=== PATIENT | female | born 1980 ===

== ENCOUNTER 2020-12-03 15:38 | Emergency (ER) | payer SELFPAY ==
[~2020-12-03] VITALS: Ht 162.5 cm; Wt 58.4 kg
[2020-12-03 15:40] VITALS: BP 137/99
[2020-12-03] MEDS ORDERED: ESTR1PAT89 (15:48)
--- NOTE | 2020-12-03 15:50 | ED Integumentary General ---
General Stated Complaint: RT HAND LAC History of Present Illness Date Seen by Provider: Dec 03, 2020 Time Seen by Provider: 15:45 Initial Comments 40-year-old female presents with laceration to dorsal surface of her right hand. She was out mowing when mower got stuck on a rock. She attempted to move the rock her hand slipped and struck her hand on the mower. She has an approximate 2.5 cm laceration. She reports no other injury. She has full range of motion. She is unsure of her last tetanus Allergies and Home Medications Allergies Coded Allergies: No Known Drug Allergies (Unverified , 12/03/20) Patient Home Medication List Home Medication List Reviewed: Yes Review of Systems Review of Systems Constitutional: no symptoms reported EENTM: no symptoms reported Respiratory: no symptoms reported Cardiovascular: no symptoms reported Gastrointestinal: no symptoms reported Musculoskeletal: see HPI Skin: see HPI Psychiatric/Neurological: No Symptoms Reported Physical Exam Vital Signs Vital Signs - First Documented 12/03/20 15:40 Temp 37.1 Pulse 96 Resp 20 B/P (MAP) 137/99 (112) Pulse Ox 100 O2 Delivery Room Air Capillary Refill : General Appearance: WD/WN, no apparent distress Neck: full range of motion, supple Cardiovascular: normal peripheral pulses, regular rate, rhythm Respiratory: chest non-tender, lungs clear, normal breath sounds Extremities: normal range of motion Neurologic/Psychiatric: no motor/sensory deficits, alert, normal mood/affect, oriented x 3 Skin Problem Location: upper extremities (Dorsal aspect right hand) Skin Problem Character: linear, other (2.5 cm laceration) Procedures/Interventions Wound's Depth, Shape: superficial Wound Explored: clean Betadine Prep?: Yes Anesthesia: 1% Lidocaine Suture: Ethlion Suture Size: 4-0 Number of Sutures: 3 Patient with good wound approximation with no immediate complication Progress/Results/Core Measures Results/Orders My Orders Orders - RICO SOLIZ DO Tdap (Boostrix) Im (12/03/20 16:15) Vital Signs/I&O 12/03/20 15:40 Temp 37.1 Pulse 96 Resp 20 B/P (MAP) 137/99 (112) Pulse Ox 100 O2 Delivery Room Air Departure Impression Primary Impression: Laceration of hand, right Qualified Codes: S61.411A - Laceration without foreign body of right hand, initial encounter Disposition: 01 HOME, SELF-CARE Condition: Stable Departure-Patient Inst. Referrals: NO,LOCAL PHYSICIAN (PCP/Family) Primary Care Physician Patient Instructions: Laceration Repair With Stitches ED Add. Discharge Instructions: Have stitches removed in approximately 8 to 10 days Keep clean with warm soapy Do not submerge in water for 36 hours RICO SOLIZ DO Dec 03, 2020 15:50
[2020-12-03] MEDS ORDERED: TETANUS,DIPTH,PERTUSS P/F (BOOSTRIX) 0.5 ML VIAL IM ONE (16:15)
== END 2020-12-03 16:15 | disposition home or self-care (01) ==
LOC: ER FS 15:40
DX: S61.411A Laceration without foreign body of right hand, initial encounter (principal); Z23 Encounter for immunization; W22.8XXA Striking against or struck by other objects, initial encounter
CPT/HCPCS: 12001; 90715